=== PATIENT | female | born 1965 | race Caucasian/White ===

== ENCOUNTER → 2016-06-01 | Outpatient (CLI) | payer BC ==
[~2016-06-01] MED LIST: BCPILLS PO; MOME50SP5 NAE; MULT-506 PO
== END | disposition home or self-care (01) ==
LOC: C.PAPS 10:05
PROVIDERS: ATTEND Obstetrics & Gynecology
DX: Z01.419 Encounter for gynecological examination (general) (routine) without abnormal findings (principal)